=== PATIENT | female | born 1955 | race Hispanic/Latino ===

== ENCOUNTER → 2021-09-24 | Outpatient (CLI) | payer MEDICARE | LOC: CT 15:42 | PROVIDERS: ATTEND Emergency Medicine | DX: R91.8 Other nonspecific abnormal finding of lung field (principal) | CPT/HCPCS: 71250 ==

== ENCOUNTER → 2022-01-24 | Outpatient (CLI) | payer MEDICARE | LOC: RAD 09:28 | PROVIDERS: ATTEND Emergency Medicine | DX: M54.50 Low back pain, unspecified (principal) | CPT/HCPCS: 72110 ==